=== PATIENT | female | born 1990 | race African-American/Black ===

== ENCOUNTER 2018-01-10 17:50 | Emergency (ER) | payer SELFPAY ==
[~2018-01-10] VITALS: Ht 162.6 cm; Wt 64.5 kg
[2018-01-10 17:55] VITALS: BP 153/71
== END 2018-01-10 19:28 | disposition left against medical advice (07) ==
LOC: EMS 17:52
DX: H57.8 Other specified disorders of eye and adnexa (principal); X96.8XXA Assault by other specified explosive, initial encounter; Y93.89 Activity, other specified; Y92.89 Other specified places as the place of occurrence of the external cause; Y99.8 Other external cause status; Z53.21 Procedure and treatment not carried out due to patient leaving prior to being seen by health care provider

== ENCOUNTER → 2018-10-23 | Emergency (ER) | payer OTHER ==
[~2018-10-23] VITALS: Ht 162.6 cm; Wt 66.8 kg
[2018-10-23 09:58] VITALS: BP 104/4
== END | disposition home or self-care (01) ==
LOC: EMS 07:59
DX: S80.02XA Contusion of left knee, initial encounter (principal); F12.90 Cannabis use, unspecified, uncomplicated; Z91.018 Allergy to other foods; W22.8XXA Striking against or struck by other objects, initial encounter; Y93.89 Activity, other specified; Y92.89 Other specified places as the place of occurrence of the external cause; Y99.8 Other external cause status

== ENCOUNTER 2020-10-29 21:39 | Emergency (ER) | payer OTHER ==
[~2020-10-29] VITALS: Ht 170.2 cm; Wt 70.9 kg
[2020-10-29 21:52] VITALS: BP 135/95
[2020-10-30] MEDS ORDERED: KETOROLAC TROMETHAMINE 30 MG/ML VIAL IM ONE (00:45)
[2020-10-30] MEDS ORDERED: DEXAMETHASONE SOD PHOS 4 MG/ML VIAL IVP ONE (00:45)
== END 2020-10-30 02:28 | disposition home or self-care (01) ==
LOC: EMS 21:46
DX: H60.91 Unspecified otitis externa, right ear (principal); F12.90 Cannabis use, unspecified, uncomplicated; Z91.013 Allergy to seafood
CPT/HCPCS: 96372; 96374; 99284; J1100; J1885

== ENCOUNTER 2022-03-19 09:29 | Emergency (ER) | payer MEDICAID, OTHER ==
[~2022-03-19] VITALS: Ht 162.6 cm; Wt 79.5 kg
[2022-03-19] MEDS: LIDOCAINE 1%/EPI 1:200,000/PF 30 ML VIAL SQ ONE ×2 (10:51→11:02)
[2022-03-19 13:31] VITALS: BP 141/69
[2022-03-19] MEDS ORDERED: BACTDSB PO (13:32)
[2022-03-19] MEDS ORDERED: IBUPROFEN 400 MG TABLET PO ONE (13:45)
[2022-03-19] MEDS ORDERED: ACETAMINOPHEN 500 MG TABLET PO ONE (13:45)
== END 2022-03-19 13:51 | disposition home or self-care (01) ==
LOC: EMS 09:29
DX: L02.31 Cutaneous abscess of buttock (principal); F12.90 Cannabis use, unspecified, uncomplicated; Z88.8 Allergy status to other drugs, medicaments and biological substances
CPT/HCPCS: 10060; 99283; J3490